=== PATIENT | female | born 1995 | race African-American/Black ===

== ENCOUNTER 2019-03-23 01:12 | Emergency (ER) | payer MEDICAID ==
[~2019-03-23] VITALS: Ht 154.9 cm; Wt 86.2 kg
[2019-03-23] VITALS (7 sets, daily range): BP systolic 100–132; BP diastolic 42–92
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
[2019-03-23] MEDS ORDERED: Morphine Sulfate 4mg/ml Inj (IV USE ONLY) IVP ONE (01:45)
--- NOTE | 2019-03-23 01:52 | NUR ---
ED Nurse Note: Blood sent to lab.
[2019-03-23 01:56] LABS: EOSINOPHILS % (AUTO) 0.9 % (0.0-3.0); HEMATOCRIT 50.3 % (37.0-47.0); HEMOGLOBIN 16.2 G/DL (12.0-16.0); MEAN CORPUSCULAR VOLUME 84 FL (80-99); NEUTROPHILS % (AUTO) 56.2 % (45.0-75.0); PLATELET COUNT 268 K/UL (150-450); RED BLOOD COUNT 5.98 M/UL (4.20-5.40); RED CELL DISTRIBUTION WIDTH 12.9 % (11.6-14.8); WHITE BLOOD COUNT 9.9 K/UL (4.8-10.8)
[2019-03-23 02:25] LABS: ANION GAP 13 mmol/L (5-15); BLOOD UREA NITROGEN 11 mg/dL (7-18); CARBON DIOXIDE 23 MMOL/L (21-32); CHLORIDE 106 MMOL/L (98-107); CREATININE 1.3 MG/DL (0.55-1.30); POTASSIUM 3.4 MMOL/L (3.5-5.1); SODIUM 142 MMOL/L (136-145)
[2019-03-23 02:30] LABS: ALANINE AMINOTRANSFERASE 20 U/L (12-78); ALBUMIN 4.2 G/DL (3.4-5.0); ALBUMIN/GLOBULIN RATIO 1.2 (1.0-2.7); ALKALINE PHOSPHATASE 74 U/L (46-116); ASPARTATE AMINO TRANSFERASE 18 U/L (15-37); BILIRUBIN,TOTAL 0.4 MG/DL (0.2-1.0)
--- NOTE | 2019-03-23 02:51 | NUR ---
ED Nurse Note: Pt continues to vomit and Informed MD. ordered CT scan and medication.
--- NOTE | 2019-03-23 02:56 | NUR ---
ED Nurse Note: Pt girlfriend is at bedside.
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
--- NOTE | 2019-03-23 03:07 | NUR ---
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
--- NOTE | 2019-03-23 03:35 | NUR ---
ED Nurse Note: Pt back fron CT.
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
[2019-03-23] MEDS ORDERED: Ketorolac 30mg Inj IV ONE (04:15)
--- NOTE | 2019-03-23 04:25 | NUR ---
ED Nurse Note: X-ray complete.
[2019-03-23] MEDS ORDERED: ROBAXIN-750750 MG PO (05:53)
[2019-03-23] MEDS ORDERED: IBUPROFEN600 MG ORAL (05:53)
[2019-03-23] MEDS ORDERED: LIDODERM700 M1 TOPIC (05:53)
[2019-03-23] MEDS ORDERED: ONDANSETRON ODT4 MG BC (05:53)
[2019-03-23] MEDS ORDERED: RANITIDINE HCL150 MG ORAL (05:53)
--- NOTE | 2019-03-23 06:24 | NUR ---
ED Nurse Note: Pt is resting with no complaints
--- NOTE | 2019-03-23 07:27 | NUR ---
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 Per shift supervisor film processing RN stated ok to not obtain urine specimen. No acute distress at this time.
--- NOTE | 2019-03-23 08:18 | NUR ---
ER DISCHARGE NOTE: Patient is cleared to be discharged per ERMD, pt is aox4, on room air, with stable vital signs. pt was given dc and prescription instructions, pt was able to verbalize understanding, pt id band and iv site removed without complications. pt is able to ambulate with steady gait. pt took all belongings. Pt educated on prescriptions.
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
== END 2019-03-23 08:16 | disposition home or self-care (01) ==
LOC: EDSEX 01:12 → EDBD 01:12 → EMR 01:31
DX: R52 Pain, unspecified (principal); R11.2 Nausea with vomiting, unspecified; V49.9XXA Car occupant (driver) (passenger) injured in unspecified traffic accident, initial encounter; Y92.411 Interstate highway as the place of occurrence of the external cause
CPT/HCPCS: 36415; 70450; 71045; 80053; 83690; 84703; 85025; 96374; 96375; 96376; J1885; J2270; J2405; S0028; Z7502; 99284